=== PATIENT | female | born 1970 | race Caucasian/White ===

== ENCOUNTER → 2024-01-04 15:49 | Outpatient (CLI) | payer OTHER, SELFPAY ==
--- NOTE | ~2024-01-04 | CT_ITS ---
EXAMINATION: CT sinus wo con DATE: 01/04/2024 16:07 INDICATION: Mass of hard palate TECHNIQUE: Computed tomography (CT) of the paranasal sinuses was performed without contrast. Iterativ e reconstruction technique was employed. Exam dose: 318.93 mGy-cm total exam DLP. COMPARISON: None FINDINGS: 2 1.1 x 1.4 x 0.6 cm soft tissue thickening along the posterior inferior aspect of the right maxillar y sinus. The paranasal sinuses and mastoid air cells are otherwise normally developed and aerated. No skull fracture or bone destruction. Normal alignment of the axial alignment. No mass lesion or destruction of the hard palate is noted. Frontozygomatic sutures, zygomatic arches, orbital rims and tyler and maxillary bones as well as nasal bones and anterior maxillary spine are i ntact, without fracture. IMPRESSION: No hard palate mass is detected Reviewed, dictated and finalized at [facility]. Reviewed, dictated and finalized at [facility]. [employer]
== END ==
PROVIDERS: PCP Otolaryngology; Visit Provider Otolaryngology
DX: M85.88 Other specified disorders of bone density and structure, other site (principal)
CPT/HCPCS: 70486